=== PATIENT | male | born 1940 | race Caucasian/White ===

== ENCOUNTER 2016-04-05 14:53 | Emergency (ER) | payer MEDICARE, OTHER ==
[~2016-04-05] VITALS: Ht 160 cm; Wt 81.8 kg
[2016-04-05 14:56] VITALS: BP 154/43; PULSE 81; RESP 16; O2SAT 97
--- NOTE | 2016-04-05 15:10 | ED.REPORT ---
HPI-General Illness Date of Service Apr 05, 2016 ED Provider: Dr. Arjun Munoz MD A 75 year old male with a history of diabetes, hypertension and hyperlipidemia presents to the ED via EMS from Urgent Care complaining of nonspecific symptoms that began 3 days ago. Patient has been experiencing "tingling lips", generalized weakness and a vague constant chest tightness for the past 24 hours. He claims that he has been unable to breathe out of his nose and he has also been experiencing increased urinary frequency. Patient had a recent medication change 3 days ago. Patient stopped 350 mg carisoprodol and changed to tizanidine. He denies any dysuria or hematuria. Nursing Notes Chief Complaint: General Complaint Nursing Notes Reviewed: Yes Allergies: Coded Allergies: ibuprofen (Verified Allergy, Mild, PASSES OUT, 04/05/16) General Time Seen by MD: 15:09 Chief Complaint Weakness Hx Obtained From: Patient Arrived By: Ambulance Sudden in Onset?: No Onset Occurred: 3 days ago Symptom Duration: Since onset Location: : Chest Quality: Painful (tightness) Radiation: : Does not radiate Severity: Current: Mild Severity: Maximum: Mild Associated with: Reports: Chest pain (tightness), Difficulty breathing, Weakness Pertinent Negative: Pt denies other symptoms Recent Healthcare: No recent hospitalization, Recent doctor visit Past Medical History Past Medical History Notes: PCP: Yvette [facility] Past Medical History Chronic neck pain Undiagnosed TIA in 2008 with associated left sided weakness Reports: Diabetes mellitus, Hyperlipidemia, Hypertension Past Surgical History L3-L4 Smoking History Former Smoker Social History Other Social History: Good social support, , Local resident Ambulatory Status Independent Review of Systems Full Review of Systems Constitutional: Reports: Weakness - generalized, Denies: Chills, Fever Ears / Nose / Throat: Denies: Nasal congestion Respiratory: Reports: Dyspnea on exertion (Only able to breath out of mouth ) Cardiovascular: Reports: Chest pain (CHest tightness) GI: Denies: Abdominal pain, Nausea, Vomiting Male: Reports Urinary frequency (Increased ), Denies Dysuria, Denies Hematuria Neurologic: Reports: Weakness, Denies: Change LOC Complete sys rev & neg: except as marked. Physical Exam Vital Signs Vital Signs Date Time Temp Pulse Resp B/P Pulse Ox O2 Delivery O2 Flow Rate FiO2 04/05/16 18:55 36.8 73 161/59 96 Room Air 04/05/16 17:15 73 16 162/51 96 Room Air 04/05/16 16:00 74 11 131/57 96 Room Air 04/05/16 14:56 36.7 81 16 154/43 97 Room Air Initial VS: Reviewed Head / Eyes: Atraumatic, Normocephalic, PERRL Neck: Supple, Non-tender, Full range of motion Extremities: Vascular intact, Neuro intact, No swelling, No tenderness Skin: Warm, Dry, No cyanosis Neurologic: Alert, Oriented, Nonfocal Psychiatric: Mood/affect normal, Behavior normal, Normal thought content General/Constitutional: Awake, Alert Respiratory / Chest: Atraumatic, Breath sounds NL, Breath sounds = bilat Cardiovascular: Heart rate NL, Regular rhythm, Heart sounds NL, No gallop, No murmurs, No rubs Abdomen: Atraumatic, Soft, Non-tender, BS normoactive Neurologic: Oriented X3, Speech NL NEURO: mild symmetric tremor Interpretation & Diagnostics Lab Results Interpretation Result Diagram: 04/05/16 1628 04/05/16 1628 Test 04/05/16 15:18 04/05/16 16:28 Hold Urine Received (Received) White Blood Count 8.3th/mm3 (3.8-10.1) Red Blood Count 4.61mil/mm3 (4.40-5.80) Hemoglobin 13.7g/dL (13.8-17.2) Hematocrit 40.6% (41.0-50.0) Mean Corpuscular Volume 88.1fL (81-100) Mean Corpuscular Hemoglobin 29.7pg (27.0-35.0) Mean Corpuscular Hemoglobin Concent 33.7% (32.0-37.0) Red Cell Distribution Width 12.6% (12.3-15.4) Platelet Count 263bil/L (150-400) Neutrophils (%) (Auto) 70.8% (40-74) Lymphocytes (%) (Auto) 16.4% (14-46) Monocytes (%) (Auto) 10.6% (4-12) Eosinophils (%) (Auto) 1.6% (0-5) Basophils (%) (Auto) 0.5% (0-3) Sodium Level 139mEq/L (134-144) Potassium Level 4.0mEq/L (3.5-5.2) Chloride Level 101mEq/L (97-108) Carbon Dioxide Level 19mmol/L (18-29) Blood Urea Nitrogen 21mg/dL (8-27) Creatinine 0.82mg/dL (0.76-1.27) Estimat Glomerular Filtration Rate 98mL/min (>59) Glucose Level 112mg/dL (60-99) Calcium Level 9.7mg/dL (8.5-10.1) Magnesium Level 2.2mg/dL (1.6-2.6) Total Bilirubin 0.2mg/dL (0.0-1.2) Aspartate Amino Transf (AST/SGOT) 27U/L (0-50) Alanine Aminotransferase (ALT/SGPT) 26U/L (0-44) Alkaline Phosphatase 79U/L (25-160) Troponin T < 0.010ug/L (0.0-0.011) Total Protein 8.0g/dL (6.4-8.4) Albumin 4.3g/dL (3.4-5.0) Hold Guerrero Top Tube Received (Received) ECG Interpretation ECG Interpretation: Normal Sinus Rhythm Rate 80 Time: 15:28 Interpreted by: ED physician X-Ray Chest Interpretation Chest Xray Interpretation: IMPRESSION: Acute disease is not seen in the chest. Dictated by: Shiv Galindo M.D. on 04/05/2016 at 16:46 Interpretation / Wet Read by: Interpret - Radiologist Re-Eval/Medical Decision Time of Eval: 17:59 Patient Status: Condition improved Re-Evaluation/Progress Note: Patient is rechecked. He is informed of his lab results, EKG results, X-ray results and diagnosis. All of the patient's questions are addressed. He understands and agrees with the treatment plan to perform a road test and discharge. Time of Eval: 18:26 Patient Status: Condition improved Re-Evaluation/Progress Note: Patient is rechecked. He passes the road test successfully. Patient understands discharge plan. Counseled Regarding: Diagnosis, Lab results, Need for follow-up, When/why to return to ED Discharge & Departure Primary Impression: Adverse drug effect Encounter type: initial encounter Qualified Code: T88.7XXA - Unspecified adverse effect of drug or medicament, initial encounter Disposition: Home Discharge Condition All VS Reviewed: Yes Condition: Stable Additional Instructions: In the emergency department tonight we saw you were feeling weak and tremulous.. Exam is reassuring as is laboratory work. Given onset of this at about the time that Soma was abruptly discontinued after long-term use and given the addition of tizanidine at the same time we suspect it is either the abrupt discontinuation of Soma or the addition of tizanidine causing these symptoms. Reference material suggests that Soma may have withdrawal symptoms if can discontinued abruptly. We advised restarting the Soma and discontinuing the tizanidine. Contact your primary care provider as soon as possible regarding these medications. If having fever shortness of breath increasing chest pain uncontrolled vomiting or other new or worrisome symptoms return immediately to the emergency department Referrals: Yvette Hutchinson (PCP) Scribe Attestation Portions of this note were transcribed by Marina Brown. I, Dr. Munoz personally performed the history, physical exam and medical decision-making; I reviewed and confirmed the accuracy of the information in the transcribed note. Signed by: Marina Brown, 04/05/16, 1827. copies to: Yvette Hutchinson Donald L MD Apr 05, 2016 15:10 MARINA BROWN Apr 05, 2016 15:28
[2016-04-05 16:00] VITALS: BP 131/57; PULSE 74; RESP 11; O2SAT 96
[2016-04-05 16:33] LABS: BASOPHILS % (AUTO) 0.5 % (0-3); EOSINOPHILS % (AUTO) 1.6 % (0-5); MONOCYTES % (AUTO) 10.6 % (4-12); Mean Corpuscular Hemoglobin 29.7 pg (27.0-35.0); Mean Corpuscular Volume 88.1 fL (81-100); NEUTROPHILS % (AUTO) 70.8 % (40-74); Platelet Count 263 bil/L (150-400)
--- NOTE | 2016-04-05 16:48 | DRSVH ---
PROCEDURE: X-RAY CHEST ONE VIEW, PORTABLE ([id number]) INDICATIONS: chest pain TECHNIQUE: One view of the chest was acquired. COMPARISON: None. FINDINGS: Surgical changes and devices: jewel diameter gauger leads are seen over the chest. Lungs and pleura: No pleural effusions or pneumothorax. Lungs are clear. Mediastinum: Mediastinal contours appear normal. Heart size is normal. Bones and chest wall: No suspicious bony lesions. Overlying soft tissues appear unremarkable. IMPRESSION: Acute disease is not seen in the chest. Dictated by: Shiv Galindo M.D. on 04/05/2016 at 16:46 Approved by: Shiv Galindo M.D. on 04/05/2016 at 16:46
[2016-04-05 17:04] LABS: Magnesium 2.2 mg/dL (1.6-2.6)
[2016-04-05 17:07] LABS: TROPONIN T < 0.010 ug/L (0.0-0.011)
[2016-04-05 17:15] VITALS: BP 162/51; PULSE 73; RESP 16; O2SAT 96
[2016-04-05 18:55] VITALS: BP 161/59; PULSE 73; O2SAT 96
== END 2016-04-05 18:52 | disposition home or self-care (01) ==
LOC: EDBD 14:53 → SED 14:53
DX: T88.7XXA Unspecified adverse effect of drug or medicament, initial encounter (principal); X58.XXXA Exposure to other specified factors, initial encounter; Y92.9 Unspecified place or not applicable; Y93.9 Activity, unspecified; Y99.9 Unspecified external cause status; E11.9 Type 2 diabetes mellitus without complications; E78.5 Hyperlipidemia, unspecified; I10 Essential (primary) hypertension; Z87.891 Personal history of nicotine dependence; Z88.6 Allergy status to analgesic agent